=== PATIENT | female | born 1995 | race Caucasian/White ===

== ENCOUNTER 2017-01-05 14:00 | Outpatient (CLI) | payer OTHER ==
[~2017-01-05] VITALS: Ht 160 cm; Wt 113.0 kg
[~2017-01-05 14:00] MED LIST: CORTISPORIN-TC10 M1 BOTH EARS; METFORMIN HCL500 MG PO; MOTRIN800 MG PO; PRILOSEC20 MG PO; PROZAC10 MG PO; VITAMIN D1000 UNIT PO; VITAMIN D10000 UNIT PO; ZOFRAN ODT4 MG PO; ZYRTEC10 M2 PO
[2017-01-05 14:23] VITALS: BP 135/83
[2017-01-05 14:27] VITALS: BP 135/83
[2017-01-05 15:05] LABS: ALKALINE PHOSPHATASE 62 IU/L (3-129); ANION GAP 11 MEQ/L (2-14); CHLORIDE 107 MEQ/L (99-109); GFR ESTIMATE (CALCULATED) > 59 mL/min/; GLUCOSE 91 mg/dL (70-99); POTASSIUM 3.9 MEQ/L (3.7-5.4); SAMPLE HEMOLYSIS CHECK 1; SAMPLE ICTERIC CHECK 0; SAMPLE LIPEMIA CHECK 0; SODIUM 136 MEQ/L (136-147); TOTAL BILIRUBIN 0.5 MG/DL (0.0-1.0); UREA NITROGEN (BUN) 5 mg/dL (9-23)
[2017-01-05 15:40] LABS: POINT-OF-CARE METER ID UU14188576
[2017-01-05 15:47] LABS: ADD MIUA? YES; BILIRUBIN NEGATIVE; BLOOD NEGATIVE; COLOR YELLOW ((YELLOW)); GLUCOSE (STRIP) NEGATIVE; KETONES NEGATIVE; LEUKOCYTES LARGE; NITRITE NEGATIVE; PROTEIN (STRIP) NEGATIVE; SPECIFIC GRAVITY 1.016 (1.000-1.030); UROBILINOGEN 0.2 MG/DL (0.2-1.0)
[2017-01-05 16:02] LABS: UR CREATININE CONCENTRATION 129.6 MG/DL
[2017-01-05 16:03] LABS: BACTERIA NONE SEEN /HPF; EPITHELIAL CELLS 2+ /HPF; MUCUS TRACE /LPF; RED BLOOD CELLS 0-5 /HPF (0-5); UCUL ADDED? NO
[2017-01-06 07:11] LABS: Estimated Average Glucose 80 mg/dL (70-123)
[2017-01-06 07:22] LABS: HEMOGLOBIN A1c (GLYCOHEMOGLOB) 4.4 % HGB (Below 5.7)
[2017-01-06 09:55] LABS: TREPONEMA ANTIBODY NEGATIVE (NEGATIVE)
== END 2017-01-05 15:50 | disposition home or self-care (01) ==
LOC: LDRP-OP 14:00 → 2WEST 14:01 → LDRP-OP 04-28 16:30
PROVIDERS: Advanced Practice Midwife; Obstetrics & Gynecology
DX: O26.892 Other specified pregnancy related conditions, second trimester (principal); E16.2 Hypoglycemia, unspecified; Z3A.28 28 weeks gestation of pregnancy
CPT/HCPCS: 59025; 80053; 81003; 82570; 82948; 83036; 84156; 86780; G0378

== ENCOUNTER 2017-03-14 12:22 | Outpatient (CLI) | payer OTHER ==
[2017-03-14 12:56] VITALS: BP 112/63
[2017-03-14 13:36] LABS: ADD MIUA? YES; BILIRUBIN NEGATIVE; BLOOD SMALL; COLOR YELLOW ((YELLOW)); GLUCOSE (STRIP) NEGATIVE; KETONES 5; LEUKOCYTES MODERATE; NITRITE NEGATIVE; PROTEIN (STRIP) NEGATIVE; SPECIFIC GRAVITY 1.021 (1.000-1.030); UROBILINOGEN 0.2 MG/DL (0.2-1.0)
[2017-03-14 13:52] LABS: BACTERIA RARE /HPF; EPITHELIAL CELLS 1+ /HPF; MUCUS TRACE /LPF; RED BLOOD CELLS 0-5 /HPF (0-5); UCUL ADDED? NO
[2017-03-14 13:56] LABS: EOSINOPHIL (%) 0.3 % (0-5); HEMATOCRIT 37.1 % (36.0-46.0); IMMATURE GRANULOCYTE (%) 0.6 % (0.0-0.7); IMMATURE GRANULOCYTE COUNT 0.1 K/uL; INSTRUMENT ABS NEUTROPHIL CT 6.2 K/uL; LYMPHOCYTE COUNT 2.1 K/uL (1.0-2.8); MCH 29.3 PG (29.0-34.0); MCHC 34.2 G/DL (30.0-36.0); MCV 85.7 FL (83-99); MEAN PLAT.VOLUME 11.1 uM^3 (9.5-12.4); MONOCYTE (%) 5.5 % (3-12); MONOCYTE COUNT 0.5 K/uL (0-0.8); NEUTROPHIL (%) 69.3 % (45-76); NEUTROPHIL COUNT 6.2 K/uL (1.8-6.4); PLATELET COUNT 182 K/uL (156-360); RBC DIS.WIDTH-CV 13.6 % (11.8-14.6); RBC DIS.WIDTH-SD 42.3 % (39-53); RED BLOOD COUNT 4.33 M/uL (3.80-5.20); WHITE BLOOD COUNT 8.9 K/uL (4.1-10.2)
[2017-03-14 14:04] LABS: INTER. NORMALIZED RATIO 1.1; PROTHROMBIN TIME 11.7 SEC (10.2-12.9)
[2017-03-14 14:07] LABS: PTT 26.7 SEC (25-37)
[2017-03-14 14:28] VITALS: BP 115/74
[2017-03-14 14:30] LABS: UR CREATININE CONCENTRATION 125.5 MG/DL
[2017-03-14 14:34] LABS: ALKALINE PHOSPHATASE 144 IU/L (3-129); ANION GAP 9 MEQ/L (2-14); CHLORIDE 108 MEQ/L (99-109); GFR ESTIMATE (CALCULATED) > 59 mL/min/; GLUCOSE 64 mg/dL (70-99); POTASSIUM 3.9 MEQ/L (3.7-5.4); SAMPLE HEMOLYSIS CHECK 0; SAMPLE ICTERIC CHECK 0; SAMPLE LIPEMIA CHECK 0; SODIUM 137 MEQ/L (136-147); TOTAL BILIRUBIN 0.4 MG/DL (0.0-1.0); UREA NITROGEN (BUN) 7 mg/dL (9-23); URIC ACID 3.6 mg/dL (3.1-9.2)
== END 2017-03-14 15:50 | disposition home or self-care (01) ==
LOC: LDRP-OP 12:22 → 2WEST 12:23 → LDRP-OP 04-28 16:16
PROVIDERS: Advanced Practice Midwife
DX: O26.893 Other specified pregnancy related conditions, third trimester (principal); R03.0 Elevated blood-pressure reading, without diagnosis of hypertension; Z3A.38 38 weeks gestation of pregnancy
CPT/HCPCS: 59025; 80053; 81003; 82570; 84156; 84550; 85025; 85610; 85730; G0378

== ENCOUNTER 2017-03-20 19:20 | Inpatient (IN) | payer OTHER ==
[~2017-03-20] VITALS: Ht 160 cm; Wt 102.9 kg
[2017-03-20 19:36] VITALS: BP 135/76
[2017-03-20 20:57] LABS: EOSINOPHIL (%) 0.5 % (0-5); EOSINOPHIL COUNT 0.1 K/uL (0-0.3); HEMATOCRIT 38.9 % (36.0-46.0); IMMATURE GRANULOCYTE (%) 0.5 % (0.0-0.7); IMMATURE GRANULOCYTE COUNT 0.1 K/uL; INSTRUMENT ABS NEUTROPHIL CT 7.6 K/uL; LYMPHOCYTE COUNT 3.2 K/uL (1.0-2.8); MCH 28.5 PG (29.0-34.0); MCHC 33.7 G/DL (30.0-36.0); MCV 84.7 FL (83-99); MONOCYTE (%) 6.5 % (3-12); MONOCYTE COUNT 0.8 K/uL (0-0.8); NEUTROPHIL (%) 64.7 % (45-76); NEUTROPHIL COUNT 7.6 K/uL (1.8-6.4); PLATELET COUNT 208 K/uL (156-360); RBC DIS.WIDTH-CV 13.4 % (11.8-14.6); RBC DIS.WIDTH-SD 41.4 % (39-53); RED BLOOD COUNT 4.59 M/uL (3.80-5.20); WHITE BLOOD COUNT 11.7 K/uL (4.1-10.2)
[2017-03-20 21:29] VITALS: BP 118/63
[2017-03-20] MEDS ORDERED: TYLENOL EXTRA500 MG PO (22:22)
[2017-03-20] MEDS ORDERED: PRENATAL TABLE1 EAC3 PO (22:23)
[2017-03-20 23:12] VITALS: BP 104/54
[2017-03-20 23:43] VITALS: BP 102/52
[2017-03-21] VITALS (11 sets, daily range): BP systolic 109–135; BP diastolic 57–82
[2017-03-22 07:32] VITALS: BP 140/94
[2017-03-22 07:58] VITALS: BP 119/76
[2017-03-22 10:08] LABS: EOSINOPHIL (%) 0.8 % (0-5); EOSINOPHIL COUNT 0.1 K/uL (0-0.3); HEMATOCRIT 37.5 % (36.0-46.0); IMMATURE GRANULOCYTE (%) 0.5 % (0.0-0.7); IMMATURE GRANULOCYTE COUNT 0.1 K/uL; INSTRUMENT ABS NEUTROPHIL CT 7.3 K/uL; LYMPHOCYTE COUNT 3.1 K/uL (1.0-2.8); MCH 28.6 PG (29.0-34.0); MCHC 33.1 G/DL (30.0-36.0); MCV 86.4 FL (83-99); MEAN PLAT.VOLUME 10.7 uM^3 (9.5-12.4); MONOCYTE COUNT 0.4 K/uL (0-0.8); NEUTROPHIL (%) 66.4 % (45-76); NEUTROPHIL COUNT 7.3 K/uL (1.8-6.4); PLATELET COUNT 195 K/uL (156-360); RBC DIS.WIDTH-CV 13.8 % (11.8-14.6); RBC DIS.WIDTH-SD 43.4 % (39-53); RED BLOOD COUNT 4.34 M/uL (3.80-5.20)
[2017-03-22] MEDS ORDERED: IBUPROFEN800 MG PO (10:49)
== END 2017-03-22 13:10 | disposition home or self-care (01) | DRG 775 ==
LOC: LDRP-OP 19:20 → 2WEST 19:22 → LDRP-OP 03-21 01:21 → 2WEST 03-21 01:31 → LDRP-OP 04-28 01:09
PROVIDERS: Advanced Practice Midwife; Obstetrics & Gynecology Obstetrics
PROC: 10907ZC Drainage of Amniotic Fluid, Therapeutic from Products of Conception, Via Natural or Artificial Opening (ICD-10-PCS; principal; 2017-03-21)
PROC: 10E0XZZ Delivery of Products of Conception, External Approach (ICD-10-PCS; principal; 2017-03-21)
PROC: 0HQ9XZZ Repair Perineum Skin, External Approach (ICD-10-PCS; principal; 2017-03-21)
DX: O70.0 First degree perineal laceration during delivery (principal); O99.62 Diseases of the digestive system complicating childbirth; K21.9 Gastro-esophageal reflux disease without esophagitis; O99.354 Diseases of the nervous system complicating childbirth; G43.909 Migraine, unspecified, not intractable, without status migrainosus; O99.284 Endocrine, nutritional and metabolic diseases complicating childbirth; E55.9 Vitamin D deficiency, unspecified; O99.214 Obesity complicating childbirth; E66.9 Obesity, unspecified; R73.03 Prediabetes; Z68.39 Body mass index [BMI] 39.0-39.9, adult; Z3A.38 38 weeks gestation of pregnancy; Z37.0 Single live birth
CPT/HCPCS: 85025; G0378; J0595; J2590; J7120